=== PATIENT | female | born 1985 | race Caucasian/White ===

== ENCOUNTER → 2017-08-08 | Outpatient (CLI) | payer OTHER ==
[~2017-08-08] MED LIST: CALCTAB5 PO; CRAN1CAP15 PO; ERGO1CAP35 PO; MULT-884 PO; NORE1TAB68 PO; SERT-234 PO; TRAM-10 PO
[2017-08-08 13:04] LABS: BASO % 0.3 %; BASO ABS # 0.02 K/uL (0-0.2); COMPLETE YES; EOS % 1.5 %; HEMATOCRIT 43.4 % (37-47); IG% 0.4 %; LYMPH % 18.7 %; LYMPH ABS # 1.46 K/uL (1.2-3.4); MEAN CELL VOLUME 87.1 fL (80-100); MEAN CORPUSCULAR HEMOGLOBIN 28.5 pg (25-34); MEAN CORPUSCULAR HGB CONC 32.7 g/dl (32-36); MEAN PLATELET VOLUME 11.5 fL (7.4-10.4); MONO % 8.6 %; NEUT % 70.5 %; PLATELET COUNT 247 K/uL (130-400); RED BLOOD COUNT 4.98 M/uL (4.2-5.4)
[2017-08-08 13:19] LABS: URINE APPEARANCE CLEAR (CLEAR); URINE BILIRUBIN NEG (NEG); URINE COLOR YELLOW; URINE NITRITE NEG (NEG); URINE PH 7.5 (4.5-7.5); URINE SPECIFIC GRAVITY 1.016 (1.000-1.030); UROBILINOGEN NEG (NEG)
[2017-08-08 13:24] LABS: MANUAL MICROSCOPIC REQUIRED? NO; REVIEW REQ? NO
[2017-08-08 13:51] LABS: ALT/SGPT 33 U/L (12-78); AMYLASE 37 U/L (25-115); AST/SGOT 14 U/L (15-37); BLOOD UREA NITROGEN 6 mg/dl (7-18); BUN/CREATININE RATIO 9.9 (10-20); CALCIUM 8.6 mg/dl (8.5-10.1); CARBON DIOXIDE 24 mmol/L (21-32); CHLORIDE 108 mmol/L (98-107); CREATININE 0.63 mg/dl (0.60-1.20); GLUCOSE 98 mg/dl (70-99); SODIUM 139 mmol/L (136-145)
[2017-08-08 13:54] LABS: ALB/GLOB RATIO 1.1 (0.9-2); ALKALINE PHOSPHATASE 61 U/L (45-117)
== END | disposition home or self-care (01) ==
LOC: C.LABPVFM 10:10
PROVIDERS: ATTEND Nurse Practitioner Family
DX: R10.9 Unspecified abdominal pain (principal)

== ENCOUNTER → 2018-06-05 | Outpatient (CLI) | payer OTHER ==
--- NOTE | 2018-06-05 12:42 | DIAGNOSTIC IMAGING REPORT ---
R FOOT MIN 3 VIEWS ROUTINE CLINICAL HISTORY: 32 years-old Female presenting with M79.673 Foot pain right,, no history of injury [id number]. TECHNIQUE: Frontal, oblique, lateral views of the right foot were obtained. COMPARISON: None. FINDINGS: Os peroneum noted. No acute fracture or malalignment. Degenerative changes noted in the midfoot. Mild degenerative changes suggested at the ankle mortise. No radiographic soft tissue abnormality. IMPRESSION: No acute osseous injury. Electronically signed by: Quique Garibay M.D. 06/05/2018 12:41 PM Dictated Date/Time: 06/05/2018 12:40 PM
== END | disposition home or self-care (01) ==
LOC: C.RAD1850 12:25
PROVIDERS: ATTEND Internal Medicine
DX: M79.671 Pain in right foot (principal)